=== PATIENT | female | born 1960 | race Caucasian/White ===

== ENCOUNTER 2019-12-02 14:38 | Emergency (ER) | payer SELFPAY ==
[2019-12-02] MEDS ORDERED: CLOPIDOGREL PO (14:58)
[2019-12-02] MEDS ORDERED: WELLBUTRIN 75MG75 MG (14:58)
[2019-12-02] MEDS ORDERED: LEXAPRO 10MG10 MG PO (14:58)
[2019-12-02] MEDS ORDERED: ANTI-ANXIETY PO (14:59)
[2019-12-02 15:46] LABS: EOS # 0.2 (0.04-0.40); EOS % 3.6 % (1.0-5.0); HEMATOCRIT 39.3 % (37.0-47.0); HEMOGLOBIN 12.2 g/dL (12.5-16.0); LYMPH# 1.6 (1.50-4.00); MEAN CELL VOLUME 92 fl (78-100); MEAN CORPUSCULAR HEMOGLOBIN 29 pg (27-31); MEAN CORPUSCULAR HGB CONC 31 g/dL (33-37); MEAN PLATELET VOLUME 9.3 fl (7.4-10.4); MONO # 0.4 (0.20-0.80); NEU # 2.5 (1.40-6.50); PLATELET COUNT 276 K/mm3 (130-400); RED BLOOD COUNT 4.26 M/mm3 (4.10-5.30); WHITE BLOOD COUNT 4.7 K/mm3 (4.8-10.8)
[2019-12-02 15:55] LABS: ALBUMIN 4.1 g/dL (3.5-5.0)
[2019-12-02 15:56] LABS: POTASSIUM 3.8 mmol/L (3.5-5.1); SODIUM 140 mmol/L (136-145)
[2019-12-02 15:57] LABS: CALCIUM 9.2 mg/dL (8.3-10.5)
[2019-12-02 15:58] LABS: GLUCOSE 87 mg/dL (65-105); TOTAL PROTEIN 7.1 g/dL (6.4-8.3)
[2019-12-02 15:59] LABS: CARBON DIOXIDE 25 mmol/L (22-29)
[2019-12-02 16:03] LABS: AST-SGOT 21 U/L (5-34)
[2019-12-02 16:05] LABS: ALT/SGPT 24 U/L (0-55); TOTAL BILIRUBIN 0.1 mg/dL (0.2-1.2)
[2019-12-02 16:12] LABS: TROPONIN-I < 0.03 ng/mL (<0.030)
[2019-12-02 17:11] VITALS: BP 125/66
== END 2019-12-02 17:00 | disposition home or self-care (01) ==
LOC: ED 14:38
PROVIDERS: Family Medicine
DX: M94.0 Chondrocostal junction syndrome [Tietze] (principal); F41.9 Anxiety disorder, unspecified; I48.91 Unspecified atrial fibrillation; Z79.02 Long term (current) use of antithrombotics/antiplatelets; Z86.73 Personal history of transient ischemic attack (TIA), and cerebral infarction without residual deficits